=== PATIENT | female | born 1955 | race Caucasian/White ===

== ENCOUNTER 2021-10-01 12:24 | Emergency (ER) | payer BC, SELFPAY ==
--- NOTE | ~2021-10-01 | XR_ITS ---
EXAMINATION: XR chest 1V portable EXAM DATE: 10/01/2021 14:02 INDICATION: cough, chest heaviness . TECHNIQUE: Portable AP frontal chest x-ray was obtained. There is no prior study for comparison. FINDINGS: There is moderate sliding gastroesophageal hiatal hernia. The lungs are clear. There are no pleural effusions. The cardiomediastinal silhouette is within normal limits. There is no pneumot horax suspected. The bones and soft tissues are unremarkable. IMPRESSION: Moderate-sized gastroesophageal hiatal hernia. Reviewed, dictated and finalized at location A. CAL DONATION PROFESSIONAL
[2021-10-01 12:50] VITALS: BP 154/88; PULSE 102; RESP 18; TEMP 36.6; O2SAT 97
[2021-10-01 13:22] VITALS: BP 134/96; PULSE 79; RESP 12; O2SAT 97
--- NOTE | 2021-10-01 13:22 | ECG_ITS ---
Measurements Intervals [place] Rate: 66 P: -15 OK: 125 QRS: -34 QRSD: 88 T: 20 QT: 407 QTc: 426 Interpretive Statements SINUS RHYTHM LEFT AXIS DEVIATION DELAYED PRECORDIAL R/S TRANSITION BORDERLINE T WAVE ABNORMALITY- ANT/INF LEADS BASELINE ARTIFACT- I, II, III, AVR, AVL, AVF, V1-V2, V6 BORDERLINE ECG Electronically Signed On 10-01-2021 13:57:47 LINE PREP COOK by Rashid Reno D.O.
--- NOTE | 2021-10-01 13:27 | ED.CHESTPAIN ---
HPI - Chest Pain General Chief Complaint: Headache Stated Complaint: ANXIETY POSSIBLE Time Seen by Provider: 10/01/21 12:26 Source: patient and RN notes reviewed Mode of arrival: ambulatory Limitations: no limitations History of Present Illness complaint: chest heaviness Pertinent past history: other (only risk factor is pt age.) Onset (ago): hour(s) (12) Timing of current episode: constant Prior episodes: No Onset: during rest Pain location: left chest Pain radiation: none Severity: mild Pain scale (0-10): 3 Quality: tightness and heaviness Relieving factors: nothing Exacerbating factors: nothing Context: other (no cardiac risk factors except her age.) Associated symptoms: cough Treatment prior to arrival: none Risk Factors Coronary artery disease risk factors: none Thoracic aortic dissection risk factors: none Related Data Home Medications Medication Instructions Recorded Confirmed No Home Medications 10/01/21 10/01/21 Allergies Allergy/AdvReac Type Severity Reaction Status Date / Time No Known Allergies Allergy Verified 10/01/21 12:47 Review of Systems Review of Systems: All systems reviewed & are unremarkable except as noted in HPI and below Cardiovascular: Cardiovascular: Reports chest pain PMFSH Past Medical History Medical History (Updated 10/01/21 @ 15:11 by Dania King MD) Chest pain at rest Exam Const: General: no acute distress and alert Nutritional Appearance: well nourished Orientation/consciousness: patient oriented x3 Limitations: no limitations HENMT: Head: normal to inspection Ears: external ears normal and TM's normal bilaterally General nose exam: Normal external nose present and Normal nares present Mouth: Yes lip normal and Yes moist mucous membranes Teeth and gingiva: dentition normal Eyes: Conjunctivae: conjunctivae normal Pupils: Equal, round and reactive pupils present EOM: EOMs intact bilaterally Neck: Neck: normal visual inspection and no lymphadenopathy Chest: Chest palpation & inspection: normal inspection of the chest Resp: Effort & Inspection: normal respiratory effort Auscultation: clear to auscultation bilaterally Cardio: Rate: regular rate Rhythm: regular rhythm GI: GI Palp: Yes Soft to palpation and No Tenderness to palpation present (GI) Percussion: Yes normal to percussion Auscultation: normal bowel sounds : General: Yes bladder normal to palpation and Yes no CVA tenderness Back/Spine/Pelvis: Back: no CVA tenderness Skin: General skin exam: normal color Rashes: no rashes Neuro: General: patient oriented x3, moves all extremities, no meningeal signs, no focal motor deficits and CN's II-XI intact bilaterally Gait exam (Neuro): Normal gait present Extrem: General: normal to inspection, no clubbing, cyanosis or edema and no pedal edema Psych: Appearance: grossly normal and well kempt Mental Status: mental status grossly normal Affect: normal affect Attitude: cooperative Thought content: Yes Normal thought content present and No Suicidality present Course Course Emergency Course: Pt was pain-free in the ED. Covid-19+ pt with mild sxs. No acute SOB or hypoxia. Pt wants to go home and will return for Regeneron IV on 10/02/2021. Will treat UTI with home Bactrim. PERINATOLOGY PHYSICIAN/PA Physician Supervision Reevaluation(s) Reevaluation #1: pt was stable in the ED. no acute chest pain. Date: 10/01/21 Time: 13:21 Vital Signs Vital signs: Vital Signs Temperature 36.6 C 10/01/21 12:50 Pulse Rate 102 H 10/01/21 12:50 Respiratory Rate 18 10/01/21 12:50 Blood Pressure 154/88 H 10/01/21 12:50 Pulse Oximetry 97 10/01/21 12:50 Temperature 36.6 C 10/01/21 12:50 Pulse Rate 65 10/01/21 14:45 Respiratory Rate 12 10/01/21 14:45 Blood Pressure 142/89 H 10/01/21 14
[2021-10-01] MEDS: SODIUM CHLORIDE 0.9% IV 1,000 ML 150 ML IV CONT (13:43)
[2021-10-01] MEDS: ASPIRIN 325 MG ENTERIC TABLET PO (13:44)
[2021-10-01] MEDS: guaiFENesin 12 HR 600 MG TABCR PO (13:44)
[2021-10-01 13:51] LABS: Basophils Absolute Auto 0.01 K/mm3 (0.00-0.10); Basophils Percent Auto 0.2 % (0.0-1.0); Eosinophils Absolute Auto 0.01 K/mm3 (0.02-0.50); Eosinophils Percent Auto 0.2 % (1.0-6.0); Hematocrit 38.6 % (35.0-49.0); Hemoglobin 13.2 g/dL (12.0-15.0); Immature Granulocyte Absolute 0.02 K/mm3 (0.00-0.00); Immature Granulocyte Percent A 0.4 % (0.0-0.0); Lymphocytes Absolute Auto 1.25 K/mm3 (1.10-4.50); Lymphocytes Percent Auto 22.9 % (18.0-42.0); Mean Corpuscular HGB Conc 34.2 g/dL (32.0-36.0); Mean Corpuscular Hemoglobin 30.1 pg (27.0-31.0); Mean Corpuscular Volume 87.9 fL (78.0-102.0); Mean Platelet Volume 10.1 fl (9.2-11.8); Monocytes Absolute Auto 0.57 K/mm3 (0.10-0.90); Monocytes Percent Auto 10.5 % (2.0-11.0); Neutrophils Absolute Auto 3.6 K/mm3 (1.7-7.2); Neutrophils Percent Auto 65.8 % (50.0-70.0); Platelet Count Result 175 K/mm3 (150-420); Red Blood Count 4.39 M/mm3 (4.20-5.40); Red Cell Distribution Width 12.3 % (11.6-14.4); White Blood Count 5.5 K/mm3 (4.8-10.8)
[2021-10-01 14:10] LABS: SARS-CoV-2 Ag Positive (Negative)
[2021-10-01 14:11] LABS: Alanine Aminotransferase 26 U/L (14-59); Albumin Level 3.6 g/dL (3.4-5.0); Alkaline Phosphatase 71 U/L (46-116); Anion Gap 11 mmol/L (8-16); Aspartate Amino Transferase 21 U/L (15-37); Bilirubin,Total 0.5 mg/dL (0.00-1.00); Blood Urea Nitrogen 9 mg/dL (7-18); Calcium 8.8 mg/dL (8.5-10.1); Carbon Dioxide 27 mmol/L (21-32); Chloride 105 mmol/L (98-108); Estimated CRCL calculation 61 ml/min; Estimated Glomerular Filt Rate > 60; Glucose 101 mg/dL (70-99); Osmolality Calculated 294 mOsm/kg (285-295); Potassium 3.3 mmol/L (3.5-5.1); Sodium 143 mmol/L (136-145); Total Protein 7.5 g/dL (6.4-8.2); Troponin I 5.9 ng/L (0.00-60.4)
[2021-10-01 14:25] LABS: Add Urine Microscopic? YES; Appearance Urine Clear (Clear); Bilirubin Urine Negative (Negative); Blood Urine 1+ (Negative); Color Urine Light Yellow (Yellow); Glucose Urine UA Negative (Negative); Ketones Urine Negative (Negative); Leukocyte Esterase Ur Negative (Negative); Nitrate Urine Negative (Negative); Protein Urine Negative (Negative); Specific Grav Ur <= 1.005 (1.010-1.020); Urobilinogen Urine 0.2 mg/dL (0.2-1.0)
[2021-10-01 14:34] LABS: Squamous Epithelial Cell Urine Occasional /hpf (Few); WBC Urine 0-3 /hpf (0-3)
[2021-10-01 14:35] LABS: Bacteria Urine 1+ /hpf
[2021-10-01 14:45] VITALS: BP 142/89; PULSE 65; RESP 12; O2SAT 99
--- NOTE | 2021-10-01 14:49 | PC.NURSE ---
ERP states pt will need antibody therapy. Infusion nurse speaking with pt to answer all questions and discuss infusion. ERP also at bedside at this time.
[2021-10-01 15:23] LABS: SARS-CoV-2 RNA PCR Positive (Negative)
[2021-10-01] MEDS: POTASSIUM CHLORIDE 20 MEQ TABLET 40 MEQ PO (15:40)
--- NOTE | 2021-10-01 15:55 | PC.NURSE ---
IV ceftriaxone infusing at this time. Pt aware waiting for this to finish before d/c. Pt tolerating well. Pt verbalized understanding to report any signs of reaction, itching, difficulty breathing.
[2021-10-01 16:09] VITALS: PULSE 74; RESP 21; O2SAT 100
== END 2021-10-01 16:24 | disposition home or self-care (01) ==
PROVIDERS: Emergency Provider Emergency Medicine; PCP Family Medicine
DX: U07.1 COVID-19 (principal); R07.89 Other chest pain; N39.0 Urinary tract infection, site not specified
CPT/HCPCS: 36415; 71045; 80053; 81001; 84484; 85025; 87426; 93005; 96361; 96365; 99283; 99284; A9270; C9803; J0696; J7030; U0003; U0005

== ENCOUNTER 2021-10-02 09:54 | Outpatient (CLI) | payer BC, SELFPAY ==
--- NOTE | 2021-10-02 10:20 | PC.NURSE ---
Pt to room 212 amb. A&Ox3. [facility] plan of care discussed, consent signed. Pt has no complaints or concerns. Oriented to room. Call montano in reach. Reminded to call with needs.
[2021-10-02] MEDS: diphenhydrAMINE HCl CAP 25 MG CAPSULE PO (10:30)
[2021-10-02] MEDS: ACETAMINOPHEN 325 MG TABLET 650 MG PO (10:30)
[2021-10-02] MEDS: FAMOTIDINE 20 MG TABLET PO (10:30)
[2021-10-02 10:55] VITALS: BP 137/88; PULSE 74; RESP 20; TEMP 36.4; O2SAT 97
--- NOTE | 2021-10-02 12:15 | PC.NURSE ---
PT has no questions or complaints. Discharged to home amb per self.
== END 2021-10-02 09:55 | disposition home or self-care (01) ==
LOC: CHSTREATRM 09:56
PROVIDERS: PCP Family Medicine; Visit Provider Emergency Medicine
DX: U07.1 COVID-19 (principal)
CPT/HCPCS: A9270; J7050; M0243; Q0244

== ENCOUNTER 2025-10-02 11:09 | Outpatient (CLI) | payer MEDICARE, OTHER, SELFPAY ==
--- NOTE | ~2025-10-02 | US_ITS ---
EXAMINATION: Ultrasound, soft tissue mass, right upper extremity: DATE: 10/02/2025. INDICATION: Soft tissue mass right upper limb. Increasing size. TECHNIQUE: The area of interest was examined with ultrasound and Doppler. COMPARISON: None. FINDINGS: The soft tissue mass is the subcutaneous tissues, heterogeneous and fairly well-defined measuring 5.1 x 4.4 x 7.3 cm. Patient is noncystic. No abnormal color flow within the mass. IMPRESSION: 1. Fairly well-defined noncystic mass in the area of interest, 5.1 x 4.4 x 7.3 cm in size. Nature of the lesion is unclear. More detailed evaluation by MRI with and without contrast is recommended. Reviewed, dictated and finalized at location T. ETING EFFECTIVENESS MANAGER IMPRESSION: 1. Fairly well-defined noncystic mass in the area of interest, 5.1 x 4.4 x 7.3 cm in size. Nature of the lesion is unclear. More detailed evaluation by MRI wi th and without contrast is recommended.
== END 2025-10-02 11:10 | disposition home or self-care (01) ==
LOC: MICIMG 11:10
PROVIDERS: PCP Surgery; Visit Provider Surgery
DX: R22.31 Localized swelling, mass and lump, right upper limb (principal)
CPT/HCPCS: 76882